=== PATIENT | male | born 1995 | race American Indian/Alaskan Native ===

== ENCOUNTER 2017-10-08 12:20 | Emergency (ER) | payer OTHER ==
--- NOTE | 2017-10-08 17:24 | Emergency Department Report ---
ED Dizziness HPI - General Chief Complaint: Dizziness Stated Complaint: LIGHTHEADED Time Seen by Provider: 10/08/17 17:04 Source: patient Mode of arrival: Ambulatory Limitations: No Limitations - History of Present Illness Initial Comments: 21-year-old male with no significant past medical history came in complaining of dizziness for past 2 days. Patient states that he has not eaten anything the past 72 hours and not feeling hungry. 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 At time of examination, patient is under no acute distress. Patient denies nausea vomiting chest pain shortness of breath. Patient denies fever chills. Patient denies any neck pain neck stiffness. Patient states he wants to eat something now and wants to leave and is refusing blood work and CAT scan and chest x-ray. -: Gradual, days(s) (2 days) Timing: gradual onset Description: lightheadedness History of Same: Yes History of Trauma: No Severity: mild Improves With: remaining still Worsens With: movement Associated Symptoms: denies: ataxia, chest pain, confusion, diaphoresis, fever/ chills, loss of appetite, malaise, seizure, shortness of breath, syncope, weakness - Related Data Allergies Allergy/AdvReac Type Severity Reaction Status Date / Time No Known Allergies Allergy Unverified 10/08/17 12:48 ED Review of Systems ROS: Stated complaint: LIGHTHEADED Other details as noted in HPI Constitutional: denies: chills, fever Eyes: denies: eye pain, eye discharge, vision change ENT: denies: ear pain, throat pain Respiratory: denies: cough, shortness of breath, wheezing Cardiovascular: denies: chest pain, palpitations Endocrine: no symptoms reported Gastrointestinal: denies: abdominal pain, nausea, diarrhea Genitourinary: denies: urgency, dysuria Musculoskeletal: denies: back pain, joint swelling, arthralgia Skin: denies: rash, lesions Neurological: denies: headache, weakness, paresthesias Psychiatric: denies: anxiety, depression Hematological/Lymphatic: denies: easy bleeding, easy bruising ED Past Medical Hx - Past Medical History Hx Psychiatric Treatment: Yes (panic attacks,anxiety,bipolar,depression) - Surgical History Past Surgical History?: No - Social History Smoking Status: Current Every Day Smoker Substance Use Type: Alcohol, Marijuana, Other ED Physical Exam - General Limitations: No Limitations - Head Head exam: Present: atraumatic - Eye Eye exam: Present: normal appearance - ENT ENT exam: Present: mucous membranes moist - Neck Neck exam: Present: normal inspection - Respiratory Respiratory exam: Present: normal lung sounds bilaterally. Absent: respiratory distress - Cardiovascular Cardiovascular Exam: Present: regular rate, normal rhythm. Absent: systolic murmur, diastolic murmur, rubs, gallop - GI/Abdominal GI/Abdominal exam: Present: soft, normal bowel sounds. Absent: distended, tenderness, guarding, rebound, rigid, organomegaly, mass, bruit, pulsatile mass , hernia - Rectal Rectal exam: Present: deferred - Extremities Exam Extremities exam: Present: normal inspection - Back Exam Back exam: Present: normal inspection - Neurological Exam Neurological exam: Present: alert - Psychiatric Psychiatric exam: Present: normal affect, normal mood - Skin Skin exam: Present: warm, dry, intact, normal color. Absent: rash ED Course Vital Signs 10/08/17 12:44 Temperature 97.5 F L Pulse Rate 68 Respiratory 18 Rate Blood Pressure 145/85 O2 Sat by Pulse 100 Oximetry ED Medical Decision Making - Medical Decision Making 21-year-old male with no significant past medical clinic complaining of dizziness for 2 days. Patient says he has not eaten anything for the past 72 hours. He feels dizzy. Said that he smoked marijuana last night after delivering pizzas. Patient is refusing blood work and CAT scan chest x-ray and patient wants to sign out AMA. All risks including bleed, stroke, explained. Patient is alert awake oriented 3 and is able to make his own decisions at the time of disposition. Patient will sign out AMA and does not want any blood work or CAT scan or chest x-ray done. I did offer patient some food and he will eat some food and go home. Critical care attestation.: If time is entered above; I have spent that time in minutes in the direct care of this critically ill patient, excluding procedure time. ED Disposition Clinical Impression: Dizziness, Anxiety, Left against medical advice Disposition: DC-07 LEFT AGAINST MED ADVICE Is pt being admited?: No Does the pt Need Aspirin: No Condition: Stable Additional Instructions: please followup with PMD in 1-2 days without fail to reevaluate and treatment Referrals: GEORGI RAM MD [Primary Care Provider] - 3-5 Days SANTI BARNETT MD [Staff Physician] - 3-5 Days Forms: AMA Form
[2017-10-08 17:37] VITALS: BP 142/78
== END 2017-10-08 17:36 | disposition left against medical advice (07) ==
LOC: ED 12:20
DX: F41.9 Anxiety disorder, unspecified (principal); F17.200 Nicotine dependence, unspecified, uncomplicated; F12.10 Cannabis abuse, uncomplicated; F31.9 Bipolar disorder, unspecified; F41.0 Panic disorder [episodic paroxysmal anxiety]
CPT/HCPCS: 93005; 93010; 99282